=== PATIENT | male | born 1965 | race Two or more races ===

== ENCOUNTER → 2016-11-14 | Outpatient (CLI) | payer BC ==
[2016-11-14 11:43] LABS: Basophils # (auto) 0.3 uL; DEFINITIVE VIEW TRANSMISSION; Eosinophils # (auto) 0.1 uL; Eosinophils % (auto) 1.2 % (0.0-7.0); Hematocrit 50.7 % (41.0-53.0); Hemoglobin 16.8 g/dL (13.5-17.5); Lymphocytes # (auto) 2.4 uL; Mean Corpuscular Hemoglobin 31.1 pg (28.0-32.0); Mean Corpuscular Hgb Conc. 33.1 g/dL (32.0-36.0); Mean Corpuscular Volume 93.8 fL (80.0-100.0); Mean Platelet Volume 6.9 fL (7.4-10.4); Monocytes # (auto) 0.3 uL; Monocytes % (auto) 3.5 % (0.0-12.0); Neutrophils # (auto) 4.6 uL; Neutrophils % (auto) 60.6 % (37.0-80.0); Platelet Count (auto) 278 10^3/uL (140-450); Red Cell Distribution Width 12.2 % (11.6-16.0); White Blood Cell 7.7 10^3/uL (4.4-10.8)
[2016-11-14 11:54] LABS: Lymphocytes % (auto) 33.7 % (10.0-50.0)
[2016-11-14 12:12] LABS: Albumin 4.5 g/dL (3.4-5.0); BUN/Creatinine Ratio 13.4; Bilirubin, Total 0.8 mg/dL (0.2-1.0); Calcium 8.7 mg/dL (8.5-10.1); Potassium 3.7 mmol/L (3.5-5.1); Total Protein 8.1 g/dL (6.4-8.2)
== END | disposition home or self-care (01) ==
LOC: LAB 11:22
PROVIDERS: ATTEND Internal Medicine
DX: E05.00 Thyrotoxicosis with diffuse goiter without thyrotoxic crisis or storm (principal); E05.90 Thyrotoxicosis, unspecified without thyrotoxic crisis or storm; I10 Essential (primary) hypertension
CPT/HCPCS: 36415; 80053; 80061; 84153; 84443; 85025

== ENCOUNTER 2019-06-20 05:52 | Inpatient (IN) | payer BC ==
[~2019-06-20] VITALS: Ht 175.3 cm; Wt 87.4 kg
[2019-06-20] MEDS ORDERED: DILTIAZEM HCL 25 MG/5 ML VIAL IV ONE (06:30)
[2019-06-20] MEDS ORDERED: DILTIAZEM HCL 120MG ER CAP PO ONE (06:30)
[2019-06-20 06:51] LABS: INR 1.06 (0.9-1.15); Partial Thromboplastin Time 27.9 sec (23.64-32.05)
[2019-06-20 06:53] LABS: Calcium 8.6 mg/dL (8.5-10.1); Chloride 108 mmol/L (98-107); Potassium 3.7 mmol/L (3.5-5.1); Sodium 142 mmol/L (136-145)
[2019-06-20 07:00] LABS: Basophils # (auto) 0.1 uL; Basophils % (auto) 0.7 % (0.0-2.0); Eosinophils # (auto) 0.2 uL; Eosinophils % (auto) 1.9 % (0.0-7.0); Hemoglobin 17.9 g/dL (13.5-17.5); Lymphocytes % (auto) 33.7 % (10.0-50.0); Mean Corpuscular Hemoglobin 32.1 pg (28.0-32.0); Mean Corpuscular Hgb Conc. 35.1 g/dL (32.0-36.0); Mean Corpuscular Volume 91.4 fL (80.0-100.0); Monocytes # (auto) 0.6 uL; Monocytes % (auto) 6.5 % (0.0-12.0); Neutrophils # (auto) 5.1 uL; Neutrophils % (auto) 57.2 % (37.0-80.0); Nucleated Red Blood Cells % 0.5 %; Platelet Count (auto) 297 10^3/uL (140-450); Red Blood Cells 5.57 10^6/uL (4.5-5.90); Red Cell Distribution Width 12.8 % (11.8-14.3); White Blood Cell 8.9 10^3/uL (4.4-10.8)
[2019-06-20] MEDS ORDERED: ONDANSETRON HCL 4 MG/2 ML VIAL IV ONE (07:00)
[2019-06-20] MEDS ORDERED: SODIUM CHLORIDE 0.9% 1,000 ML IV ONE ×2 (07:00)
[2019-06-20 07:02] LABS: Alanine Aminotransferase 18 U/L (16-61); Albumin 4.3 g/dL (3.4-5.0); Alkaline Phosphatase 83 U/L (45-117); Anion Gap 7 (5-15); Aspartate Aminotransferase 14 U/L (15-37); BUN/Creatinine Ratio 9.8; Bilirubin, Total 0.9 mg/dL (0.2-1.0); Blood Urea Nitrogen 10 mg/dL (7-18); Carbon Dioxide 27 mmol/L (21-32); GFR African American 97 mL/min; GFR Non-African American 80 mL/min; Glucose 106 mg/dL (74-106); Total Protein 7.6 g/dL (6.4-8.2)
[2019-06-20] MEDS ORDERED: ASPirin 81 mg TAB PO ONE (07:15)
[2019-06-20] MEDS ORDERED: NITROGLYCERIN 0.4 MG SL TAB SL PRN (09:30)
[2019-06-20 09:59] LABS: Cholesterol 138 mg/dL (< 200); Triglycerides 132 mg/dL (< 150)
[2019-06-20] MEDS ORDERED: FAMOTIDINE 20 MG TAB PO SCH (10:00)
[2019-06-20 10:01] LABS: HDL Cholesterol 45 mg/dL (40-59); LDL Cholesterol 72 mg/dL (< 100)
[2019-06-20] MEDS: ASPirin 81 mg TAB PO SCH (10:05)
[2019-06-20] MEDS: PANTOPRAZOLE 40 MG TAB PO SCH (10:05)
--- NOTE | 2019-06-20 10:27 | NUR ---
Telemetry admit from ER [facility] admitted to Telemetry unit after SBAR received. Patient oriented to Tierra York, primary RN, unit, room, bed, and unit policies regarding patient care and visiting hours. Patient now on continuous telemetry monitoring, tele box # 79 and telemetry reading on arrival to unit is . Patient weighed by bedscale and encouraged to call if they need something. All questions and concerns addressed, patient verbalized understanding. Note:
[2019-06-20] MEDS: ONDANSETRON HCL 4 MG/2 ML VIAL IV PRN ×2 (10:37→16:13)
[2019-06-20] MEDS: HYDROcodone-ACET 5/325MG TAB PO PRN ×2 (11:35→16:11)
[2019-06-20 11:42] VITALS: BP 111/72
[2019-06-20 13:00] VITALS: BP 104/64
[2019-06-20] MEDS ORDERED: SOTALOL HCL 80 MG TAB PO ONE (14:30)
[2019-06-20 17:00] VITALS: BP 102/59
--- NOTE | 2019-06-20 19:20 | NUR ---
Opening Shift Note Received report from Brittany REES. Assumed care of patient, awake and alert. No S/S of distress/SOB or pain. Instructed on POC and to call for assist PRN, will continue to monitor for changes Q1hr and PRN.
[2019-06-20 22:00] VITALS: BP 98/55
[2019-06-20] MEDS: SOTALOL HCL 80 MG TAB PO SCH (22:00)
[2019-06-20] MEDS: APIXABAN 5 MG TAB PO SCH (22:11)
[2019-06-21 05:00] VITALS: BP 84/58
--- NOTE | 2019-06-21 05:04 | NUR ---
Patient's BP is 84/58 on L arm, 83/54 on R arm HR 63, asymptomatic, no sob or pain. Paged hospitalist, awaiting for call back.
[2019-06-21] MEDS ORDERED: ALBUMIN 5% 250 ML IV ONE (06:30)
--- NOTE | 2019-06-21 07:00 | NUR ---
Opening Shift Note Assumed care of patient, awake and alert. No S/S of distress/SOB or pain. Instructed on POC and to call for assist PRN, will continue to monitor for changes Q1hr and PRN.
[2019-06-21 08:35] VITALS: BP 99/62
[2019-06-21] MEDS ORDERED: DILTIAZEM HCL 120MG ER CAP PO SCH (10:00)
[2019-06-21] MEDS: PANTOPRAZOLE 40 MG TAB PO SCH (10:39)
[2019-06-21] MEDS: APIXABAN 5 MG TAB PO SCH ×2 (10:40→21:55)
[2019-06-21] MEDS: SOTALOL HCL 80 MG TAB PO SCH ×2 (10:40→21:55)
[2019-06-21] MEDS: ASPirin 81 mg TAB PO SCH (10:41)
[2019-06-21 12:49] VITALS: BP 109/62
[2019-06-21 16:53] VITALS: BP 124/80
[2019-06-21 20:02] LABS: Urine WBC None Seen /hpf (0 - 3)
[2019-06-21 20:21] LABS: Urine Bacteria NONE SEEN /hpf (None Seen); Urine Blood Negative /uL (Negative); Urine Specific Gravity 1.009 (1.001-1.035)
[2019-06-21] MEDS: ACETAMINOPHEN 500 MG TAB PO PRN (20:23)
[2019-06-21 22:00] VITALS: BP 119/68
[2019-06-22 05:00] VITALS: BP 127/73
--- NOTE | 2019-06-22 08:00 | NUR ---
Received pt resting in bed, call light with in reach, pt denies any pain or discomfort at this time, will continue to monitor pt.
[2019-06-22 09:00] VITALS: BP 122/88
[2019-06-22] MEDS: APIXABAN 5 MG TAB PO SCH ×2 (09:33→21:43)
[2019-06-22] MEDS: PANTOPRAZOLE 40 MG TAB PO SCH (09:33)
[2019-06-22] MEDS: SOTALOL HCL 80 MG TAB PO SCH ×2 (09:34→21:44)
--- NOTE | 2019-06-22 11:45 | NUR ---
Dr. Pelletier at bed side to see pt, doctor discussed the plan of care with pt, ok for pt to shower per doctor.
--- NOTE | 2019-06-22 11:47 | NUR ---
Nutrition Assessment Notes please see attached link for complete assessment Est. Needs BW 90 [id number] kcal (23-25 kcal/kgBW), 90-99 gms pro (1.0-1.1 gms/kgBW). Will continue to monitor pertinent labs and reassess nutrient need prn Addendum: 06/22/19 at [address] Amended: Links added.
[2019-06-22 13:00] VITALS: BP 113/75
[2019-06-22 17:00] VITALS: BP 111/74
--- NOTE | 2019-06-22 18:32 | NUR ---
Dr. Ho / cardiology at unit to see pt, received orders to obtain consent for cardioversion for 06/23/2019 at 1000, npo after midnight, and start pt on NS at 50 ml/hr.
--- NOTE | 2019-06-22 19:00 | NUR ---
Opening notes Assumed care, awake and oriented with no signs of distress and no c/o pain, respirations even and unlabored on room air, SPPO2 98%, still afib, 90's, PIV in the left AC patent and intact, to start NS @ 50ml/hr. Bed in lowest position with side rails up, bed alarm on, call light within reach. Encouraged to call if he needs something. Will continue care
[2019-06-22] MEDS: SODIUM CHLORIDE 0.9% 1,000 ML IV SCH (21:49)
[2019-06-22 22:00] VITALS: BP 119/76
--- NOTE | 2019-06-23 | NUR ---
Instructed on NPO post midnight
[2019-06-23 05:00] VITALS: BP 119/62
--- NOTE | 2019-06-23 06:08 | NUR ---
Ambulated to the restroom to take a shower, no distress noted.
--- NOTE | 2019-06-23 07:32 | NUR ---
Opening Note Assumed pt care form NOC nurse. Pt is a/ox4 with no s/s of distress or SOB. Pt is currently laying upright in bed with a mild complaint of dizziness; pt states that he just got done taking a shower and "that may be why". Instructed pt to stay in bed if dizziness persists; pt verbalized understanding. Discussed POC with pt and the scheduled cardioversion with Dr Ho today; pt verbalized understanding. Safety measures maintained with call light within reach, bed in lowest position and side rails up. Will continue to monitor for changes q1hr and prn.
[2019-06-23] MEDS: APIXABAN 5 MG TAB PO SCH ×2 (08:56→21:31)
[2019-06-23] MEDS: SOTALOL HCL 80 MG TAB PO SCH ×2 (08:56→22:00)
[2019-06-23] MEDS: PANTOPRAZOLE 40 MG TAB PO SCH (08:56)
[2019-06-23 09:00] VITALS: BP 103/70
--- NOTE | 2019-06-23 11:00 | NUR ---
Cardioversion Update Spoke with roofing laborer regarding estimated time for scheduled Cardioversion with Dr oH. At this time, staff in laborer cook house is unaware of when pt will be taken for procedure. They stated that they would alert me when they knew; requested that pt maintain NPO status. Will notify patient and keep NPO. Will continue to monitor.
--- NOTE | 2019-06-23 12:13 | NUR ---
Dr Pelletier at Bedside MD to see pt.
[2019-06-23] MEDS ORDERED: MIDAZOLAM HCL 1MG/1ML-2 ML VIAL ONE ×2 (12:52→13:13)
--- NOTE | 2019-06-23 12:52 | NUR ---
Pt Taken Down to Coal Unloader Pt taken via [place]. A/OX4 with no s/s of distress.
[2019-06-23] MEDS ORDERED: ENOXAPARIN SOD 30 MG/0.3 ML SYRINGE SC ONE (13:30)
[2019-06-23] MEDS ORDERED: MIDAZOLAM HCL 1MG/1ML-2 ML VIAL IV ONE (13:30)
[2019-06-23] MEDS ORDERED: ENOXAPARIN SOD 30 MG/0.3 ML SYRINGE IV ONE (14:00)
--- NOTE | 2019-06-23 14:17 | NUR ---
Pt Back on Unit from Boiler House Mechanic Pt back on unit from research laboratory manager. Pt is a/ox4 with no s/s of distress. Pt currently is on 2L NC PRN. Will continue to monitor for changes q1hr and prn.
[2019-06-23 14:20] VITALS: BP 131/67
[2019-06-23] MEDS: SODIUM CHLORIDE 0.9% 1,000 ML IV SCH (14:30)
[2019-06-23 17:00] VITALS: BP 110/69
[2019-06-23] MEDS: ACETAMINOPHEN 500 MG TAB PO PRN (18:27)
--- NOTE | 2019-06-23 19:10 | NUR ---
Opening Shift Note Received report from didier Diaz RN. Assumed care of patient, awake and alert. No S/S of distress/SOB or pain. Instructed on POC and to call for assist PRN, will continue to monitor for changes Q1hr and PRN. Bed placed in lowest position and call light within reach.
[2019-06-23] MEDS: HYDROcodone-ACET 5/325MG TAB PO PRN (21:30)
[2019-06-23] MEDS: MAGNESIUM OXIDE 400 MG TAB PO SCH (21:31)
[2019-06-23 22:00] VITALS: BP 96/56
[2019-06-24] MEDS: HYDROcodone-ACET 5/325MG TAB PO PRN (04:55)
[2019-06-24 05:00] VITALS: BP 94/66
--- NOTE | 2019-06-24 05:00 | NUR ---
GIVEN NORCO FOR HEADACHE. PATIENT IS ALERT AND ORIENTED, NO DISTRESS NOTED. VITALS ARE THE FF: TEMP 98.0, PULSE 61, RESP 16, OXYGEN SAT ON RA IS 98% AND BLOOD PRESSURE IS 94/66
--- NOTE | 2019-06-24 07:44 | NUR ---
Opening Note Assumed pt care from [facility] nurse. Pt is a/ox4 with no s/s of distress or SOB. Pt is currently laying in bed with no complaints at this time. Pt states that his ASCENCIO has since resolved; will continue to monitor. Discussed POC with pt and possible d/c today; pt verbalized understanding. Safety measures maintained with call light within reach, bed in lowest position and side rails up. Will continue to monitor for changes q1hr and prn.
[2019-06-24 09:00] VITALS: BP 98/50
[2019-06-24] MEDS: PANTOPRAZOLE 40 MG TAB PO SCH (09:30)
[2019-06-24] MEDS: MAGNESIUM OXIDE 400 MG TAB PO SCH (09:31)
[2019-06-24] MEDS: SOTALOL HCL 80 MG TAB PO SCH (09:31)
[2019-06-24] MEDS: APIXABAN 5 MG TAB PO SCH (09:31)
--- NOTE | 2019-06-24 11:21 | NUR ---
DR MARTINEZ AT BEDSIDE PLANS TO D/C PT HOME.
[2019-06-24 12:01] VITALS: BP 98/50
--- NOTE | 2019-06-24 12:21 | NUR ---
IV D/C'ED IV TO PT L FA REMOVED. CATHETER WAS REMOVED FULLY INTACT. SITE IS ASYMPTOMATIC. PRESSURE WAS APPLIED TO SITE FOR 3 MINUTES WITH GAUZE AND THEN WRAPPED IN [place]. PT TOLERATED REMOVAL WELL.
--- NOTE | 2019-06-24 12:23 | NUR ---
TELE BOX REMOVED AND SENT BACK TO ICU
--- NOTE | 2019-06-24 12:25 | NUR ---
PT D/C'ED OFF UNIT PT AMBULATED OFF UNIT WITHOUT DIFFICULTY, PT HAS ALL BELONGINGS, EDUCATION MATERIAL, FOLLOW UP APPOINTMENT INFORMATION, AND ALL QUESTIONS WERE ANSWERED. PT'S IV AND TELE BOX WERE REMOVED PRIOR TO D/C. PT IS A/OX4 UPON D/C.
== END 2019-06-24 12:24 | disposition home or self-care (01) | DRG 309 ==
LOC: ER 05:52 → EEVIPCON 05:53 → TELE 05:53 → TELE-WESTW 10:16
PROVIDERS: ADMIT Nurse Practitioner Acute Care; ATTEND Internal Medicine
PROC: 5A2204Z Restoration of Cardiac Rhythm, Single (ICD-10-PCS; principal; 2019-06-23)
DX: I48.0 Paroxysmal atrial fibrillation (principal); D68.69 Other thrombophilia; Z79.01 Long term (current) use of anticoagulants; D75.1 Secondary polycythemia; Z88.5 Allergy status to narcotic agent; Z90.49 Acquired absence of other specified parts of digestive tract
CPT/HCPCS: 36415; 71045; 71046; 80053; 80061; 81001; 83735; 84154; 84443; 84484; 85025; 85610; 85730; 86141; 93005; 93306; 96361; 96365; 96375; 99291; G0378; J2250; J2405

== ENCOUNTER → 2019-07-12 | Outpatient (CLI) | payer BC ==
[~2019-07-12] MED LIST: APIX5TAB4 PO; MAGN400T40 PO; SOTA80TA PO
[2019-07-12 10:25] VITALS: BP 125/80
[2019-07-12 10:45] VITALS: BP 113/72
--- NOTE | 2019-07-12 10:45 | NUR ---
Pre-Op Discharge Summary: See e-MAR for any medications given for this visit. Pre-op orders received and carried out per MD of EKG, LABS and chest xrays. Patient given a copy of EKG with instructions to go to [facility] out patient for further follow up care.
[2019-07-12 11:59] LABS: Basophils # (auto) 0 uL; Basophils % (auto) 0.5 % (0.0-2.0); Eosinophils # (auto) 0.2 uL; Hematocrit 47.1 % (41.0-53.0); Hemoglobin 16.3 g/dL (13.5-17.5); Lymphocytes # (auto) 2.5 uL; Mean Corpuscular Hemoglobin 32.1 pg (28.0-32.0); Mean Corpuscular Hgb Conc. 34.6 g/dL (32.0-36.0); Mean Corpuscular Volume 92.9 fL (80.0-100.0); Monocytes # (auto) 0.5 uL; Neutrophils # (auto) 4.4 uL; Neutrophils % (auto) 57.5 % (37.0-80.0); Nucleated Red Blood Cells % 0.8 %; Platelet Count (auto) 275 10^3/uL (140-450); Red Blood Cells 5.07 10^6/uL (4.5-5.90); Red Cell Distribution Width 13.3 % (11.8-14.3); White Blood Cell 7.7 10^3/uL (4.4-10.8)
[2019-07-12 12:13] LABS: Calcium 8.9 mg/dL (8.5-10.1); INR 1.08 (0.9-1.15); Partial Thromboplastin Time 31.3 sec (23.64-32.05); Potassium 4.2 mmol/L (3.5-5.1)
[2019-07-12 12:15] LABS: BUN/Creatinine Ratio 12.4
== END | disposition home or self-care (01) ==
LOC: Rad HDHVI 09:56
PROVIDERS: ATTEND Internal Medicine Cardiovascular Disease
DX: Z01.812 Encounter for preprocedural laboratory examination (principal); J84.10 Pulmonary fibrosis, unspecified; R91.1 Solitary pulmonary nodule
CPT/HCPCS: 36415; 71046; 80048; 85025; 85610; 85730; 93005; G0463

== ENCOUNTER 2019-07-14 09:22 | Inpatient (IN) | payer BC ==
[~2019-07-14] VITALS: Ht 175.3 cm; Wt 83.9 kg
[2019-07-14] MEDS ORDERED: VANCOMYCIN 1GM/250ML 250 ML IV ONE (12:28)
[2019-07-14] MEDS ORDERED: LIDOCAINE 2%HCL (LOCAL ANESTH.) INJ 20ML MDV ONE (12:28)
[2019-07-14] MEDS ORDERED: VANCOMYCIN HCL 1000 MG VL ONE (12:28)
[2019-07-14] MEDS ORDERED: fentaNYL CITRATE 100 MCG/2 ML VL ONE (12:29)
[2019-07-14] MEDS ORDERED: ceFAZolin 1GM/50ML 50 ML IV ONE (12:29)
[2019-07-14] MEDS ORDERED: MIDAZOLAM HCL 1MG/1ML-2 ML VIAL ONE (12:29)
[2019-07-14] MEDS ORDERED: methylPREDNISolone SOD SUCC 125 MG/2 ML VL IV ONE (14:00)
[2019-07-14] MEDS ORDERED: methylPREDNISolone SOD SUCC 125 MG/2 ML VL ONE (14:00)
[2019-07-14] MEDS ORDERED: ACETAMINOPHEN 325 MG TAB PO PRN (14:30)
[2019-07-14] MEDS ORDERED: ceFAZolin 1GM/50ML 50 ML IV SCH ×2 (14:30→20:00)
[2019-07-14] MEDS ORDERED: HYDROcodone-ACET 5/325MG TAB PO PRN (14:30)
[2019-07-14] MEDS ORDERED: NITROGLYCERIN 0.4 MG SL TAB SL PRN (14:30)
[2019-07-14 16:00] VITALS: BP 121/74
--- NOTE | 2019-07-14 17:00 | NUR ---
Telemetry admit from Senior Principal Software Engineer MIKEMAC Pabon admitted to Telemetry unit after verbal report received. Patient oriented to Olamide Steve, primary RN, unit, room, bed, and unit policies regarding patient care and visiting hours. Patient is awake, alert and oriented X4. No signs or symptoms of distress, shortness of breath, complains of left upper chest pain to s/p pacemaker site, medicated with prescribed pain medication. Patient now on continuous telemetry monitoring, tele box #34 and telemetry reading on arrival to unit is sinus rhythm @ 60 bpm . IV to right wrist, 20 gauge, patent and saline locked. Left upper chest wall dressing in place, clean, dry and intact, left arm in sling and ice pack applied. Patient placed on bedside oxygen, weighed by bedscale and encouraged to call if they need something. All questions and concerns addressed, patient verbalized understanding. Bed locked, in lowest position, call light within reach, will continue to monitor Q 1 hour and PRN.
--- NOTE | 2019-07-14 20:00 | NUR ---
open note assumed care of pt. upon entering room pt awake, alert and oriented x4. pt on room air no distress noted or expressed. pt denies any pain at this time. left arm is in sling and dressing to left upper chest is clean dry and intact. pt aware of mobility restriction with left arm at this time. pt updated on plan of care, no questions at this time. pt bed locked, low and 2x rails up. call light in reach, this nurse to round q1hr and prn. call light in reach.
[2019-07-14 21:32] VITALS: BP 113/68
[2019-07-14] MEDS: SOTALOL HCL 80 MG TAB PO SCH (21:49)
[2019-07-14] MEDS: MAGNESIUM OXIDE 400 MG TAB PO SCH (21:50)
[2019-07-15 04:41] VITALS: BP 104/56
--- NOTE | 2019-07-15 07:35 | NUR ---
Opening Shift Note Assumed care of patient, awake and alert. No S/S of distress/SOB or pain. Noted post op dressing on left chest is clean dry and intact. Instructed on POC and to call for assist PRN, will continue to monitor for changes Q1hr and PRN.
[2019-07-15 08:44] VITALS: BP 100/56
[2019-07-15] MEDS: MAGNESIUM OXIDE 400 MG TAB PO SCH (09:59)
[2019-07-15] MEDS: SOTALOL HCL 80 MG TAB PO SCH (10:00)
[2019-07-15 13:44] VITALS: BP 101/50
--- NOTE | 2019-07-15 14:45 | NUR ---
DR. ZAMORA ORDERED TO DISCHARGE PATIENT HOME.
[2019-07-15 15:08] VITALS: BP 105/61
--- NOTE | 2019-07-15 15:23 | NUR ---
pt seen by Dr. Ho per Dr. Ho pt can go home, to remove the sling, and resume blood thinners on Thursday.
--- NOTE | 2019-07-15 16:15 | NUR ---
Discharge instructions given as ordered. Encourage to follow up with DR. ZAMORA ON 07/20/19 AT 9:20AM AND DR CORNELL ON 08/02/19 AT 2:15PM. All questions and concerns addressed. Patient verbalized understanding. Medication reconciliation form completed and copy given to patient. IV removed with catheter intact, pressure dressing applied. Telemetry unit returned to ICU. Patient taken to vehicle via wheelchair with all personal belongings, accompanied by staff and family member. No distress noted at time of departure.
== END 2019-07-15 16:15 | disposition home or self-care (01) | DRG 243 ==
LOC: CATH 09:22 → TELE-CENTR 15:35
PROVIDERS: ADMIT Internal Medicine Cardiovascular Disease; ATTEND Internal Medicine Cardiovascular Disease
PROC: 0JH606Z Insertion of Pacemaker, Dual Chamber into Chest Subcutaneous Tissue and Fascia, Open Approach (ICD-10-PCS; principal; 2019-07-14)
PROC: 02H63JZ Insertion of Pacemaker Lead into Right Atrium, Percutaneous Approach (ICD-10-PCS; 2019-07-14)
PROC: 02HK3JZ Insertion of Pacemaker Lead into Right Ventricle, Percutaneous Approach (ICD-10-PCS; 2019-07-14)
DX: I49.5 Sick sinus syndrome (principal); D68.59 Other primary thrombophilia; I48.0 Paroxysmal atrial fibrillation; Z88.5 Allergy status to narcotic agent; Z88.1 Allergy status to other antibiotic agents; Z79.01 Long term (current) use of anticoagulants
CPT/HCPCS: 71045; 93005; 99152; 99153; C1785; G0378; J0690; J2250

== ENCOUNTER 2019-07-26 19:08 | Emergency (ER) | payer BC ==
[~2019-07-26] VITALS: Ht 175.3 cm; Wt 81.6 kg
[2019-07-26 20:50] LABS: Basophils # (auto) 0.1 uL; Basophils % (auto) 0.8 % (0.0-2.0); Eosinophils # (auto) 0.3 uL; Eosinophils % (auto) 3.4 % (0.0-7.0); Hematocrit 47.7 % (41.0-53.0); Hemoglobin 16.7 g/dL (13.5-17.5); Lymphocytes # (auto) 3.2 uL; Lymphocytes % (auto) 32.5 % (10.0-50.0); Mean Corpuscular Hemoglobin 32.4 pg (28.0-32.0); Mean Corpuscular Volume 92.5 fL (80.0-100.0); Monocytes # (auto) 0.6 uL; Monocytes % (auto) 6.3 % (0.0-12.0); Neutrophils # (auto) 5.6 uL; Nucleated Red Blood Cells % 0.1 %; Platelet Count (auto) 277 10^3/uL (140-450); Red Blood Cells 5.15 10^6/uL (4.5-5.90); White Blood Cell 9.9 10^3/uL (4.4-10.8)
[2019-07-26] MEDS: METOPROLOL TARTRATE 1MG/1ML-5ML VIAL IV ONE ×2 (20:55→22:27)
[2019-07-26 21:11] LABS: Albumin 3.9 g/dL (3.4-5.0); Anion Gap 6 (5-15); BUN/Creatinine Ratio 10.2; Blood Urea Nitrogen 9 mg/dL (7-18); Calcium 8.6 mg/dL (8.5-10.1); Carbon Dioxide 27 mmol/L (21-32); Chloride 108 mmol/L (98-107); GFR African American 115 mL/min; GFR Non-African American 95 mL/min; Glucose 86 mg/dL (74-106); Magnesium 2.5 mg/dL (1.6-2.6); Potassium 4.3 mmol/L (3.5-5.1); Sodium 141 mmol/L (136-145)
[2019-07-26 21:16] LABS: Alanine Aminotransferase 16 U/L (16-61); Alkaline Phosphatase 84 U/L (45-117); Aspartate Aminotransferase 13 U/L (15-37); Bilirubin, Total 0.4 mg/dL (0.2-1.0); Total Protein 7.5 g/dL (6.4-8.2)
[2019-07-26 21:26] LABS: INR 1.01 (0.9-1.15)
[2019-07-26 23:45] VITALS: BP 109/71
== END 2019-07-26 23:45 | disposition home or self-care (01) ==
LOC: EEVIPCON 19:10 → ER 19:10
DX: I48.20 Chronic atrial fibrillation, unspecified (principal); Z90.49 Acquired absence of other specified parts of digestive tract; Z88.6 Allergy status to analgesic agent; Z88.1 Allergy status to other antibiotic agents; Z95.0 Presence of cardiac pacemaker
CPT/HCPCS: 36415; 71045; 80053; 83735; 83880; 84443; 84484; 85025; 85610; 85730; 93005; 96374; 96375; 96376

== ENCOUNTER 2019-11-03 06:15 | Day surgery (SDC) | payer BC ==
[~2019-11-03] VITALS: Ht 175.3 cm; Wt 89.4 kg
[2019-11-03 08:15] LABS: Basophils # (auto) 0 10 ^3/uL (0-0.2); Basophils % (auto) 0.6 % (0.0-2.0); Eosinophils # (auto) 0.1 10 ^3/uL (0-0.8); Eosinophils % (auto) 1.7 % (0.0-7.0); Hematocrit 46.7 % (41.0-53.0); Hemoglobin 16.1 g/dL (13.5-17.5); Lymphocytes # (auto) 2.3 10 ^3/uL (0.4-5.4); Mean Corpuscular Hemoglobin 32.3 pg (28.0-32.0); Mean Corpuscular Hgb Conc. 34.5 g/dL (32.0-36.0); Mean Corpuscular Volume 93.7 fL (80.0-100.0); Monocytes # (auto) 0.5 10 ^3/uL (0-1.3); Monocytes % (auto) 6.8 % (0.0-12.0); Neutrophils # (auto) 3.9 10 ^3/uL (1.6-8.6); Neutrophils % (auto) 56.9 % (37.0-80.0); Nucleated Red Blood Cells % 0.2 %; Platelet Count (auto) 231 10^3/uL (140-450); Red Blood Cells 4.99 10^6/uL (4.5-5.90); Red Cell Distribution Width 13.2 % (11.8-14.3); White Blood Cell 6.8 10^3/uL (4.4-10.8)
[2019-11-03 08:30] LABS: INR 1.07 (0.9-1.15); Partial Thromboplastin Time 29.1 sec (23.64-32.05)
[2019-11-03 08:31] LABS: Calcium 8.4 mg/dL (8.5-10.1); Potassium 4.1 mmol/L (3.5-5.1)
[2019-11-03] MEDS ORDERED: MIDAZOLAM HCL 1MG/1ML-2 ML VIAL IV ONE (09:30)
== END 2019-11-03 11:27 | disposition home or self-care (01) ==
LOC: CATH 06:15
PROVIDERS: ATTEND Internal Medicine Cardiovascular Disease
DX: I48.91 Unspecified atrial fibrillation (principal); Z88.5 Allergy status to narcotic agent; Z98.890 Other specified postprocedural states; Z98.52 Vasectomy status
CPT/HCPCS: 36415; 80048; 85025; 85610; 85730; 92960; 93005; J2250; J7040; 99152

== ENCOUNTER → 2019-11-25 | Outpatient (CLI) | payer BC | END | disposition home or self-care (01) | LOC: XYW 07:34 | PROVIDERS: ATTEND Specialist | DX: I11.9 Hypertensive heart disease without heart failure (principal); R07.9 Chest pain, unspecified | CPT/HCPCS: 93306 ==

== ENCOUNTER → 2019-12-07 | Outpatient (CLI) | payer BC ==
[~2019-12-07] VITALS: Ht 175.3 cm; Wt 88.9 kg
[~2019-12-07] MED LIST changes: +ACET-1304 PO; +ADENOSINE 75 MG in GIVE UN-DILUTED 0 ML IV STA
== END | disposition home or self-care (01) ==
LOC: XY 09:12
PROVIDERS: ATTEND Specialist
DX: R07.9 Chest pain, unspecified (principal); I10 Essential (primary) hypertension; Z95.0 Presence of cardiac pacemaker
CPT/HCPCS: 78452; 93017; A9500; J0153

== ENCOUNTER 2019-12-14 14:07 | Inpatient (IN) | payer BC ==
[~2019-12-14] VITALS: Ht 175.3 cm; Wt 94.0 kg
[~2019-12-14 14:07] MED LIST changes: -ACET-1304 PO; -ADENOSINE 75 MG in GIVE UN-DILUTED 0 ML IV STA
[2019-12-14 15:14] LABS: Basophils # (auto) 0 10 ^3/uL (0-0.2); Basophils % (auto) 0.5 % (0.0-2.0); Eosinophils # (auto) 0.1 10 ^3/uL (0-0.8); Eosinophils % (auto) 1.6 % (0.0-7.0); Hematocrit 47.6 % (41.0-53.0); Hemoglobin 16.9 g/dL (13.5-17.5); Lymphocytes # (auto) 2.5 10 ^3/uL (0.4-5.4); Lymphocytes % (auto) 32.8 % (10.0-50.0); Mean Corpuscular Hemoglobin 33.1 pg (28.0-32.0); Mean Corpuscular Hgb Conc. 35.4 g/dL (32.0-36.0); Mean Corpuscular Volume 93.4 fL (80.0-100.0); Monocytes # (auto) 0.6 10 ^3/uL (0-1.3); Monocytes % (auto) 8.2 % (0.0-12.0); Neutrophils # (auto) 4.4 10 ^3/uL (1.6-8.6); Neutrophils % (auto) 56.9 % (37.0-80.0); Nucleated Red Blood Cells % 0.1 %; Platelet Count (auto) 304 10^3/uL (140-450); Red Cell Distribution Width 12.8 % (11.8-14.3); White Blood Cell 7.7 10^3/uL (4.4-10.8)
[2019-12-14 15:28] LABS: Alanine Aminotransferase 18 U/L (16-61); Anion Gap 6 (5-15); Aspartate Aminotransferase 15 U/L (15-37); BUN/Creatinine Ratio 12.4; Blood Urea Nitrogen 15 mg/dL (7-18); Calcium 8.4 mg/dL (8.5-10.1); Carbon Dioxide 26 mmol/L (21-32); Chloride 108 mmol/L (98-107); GFR African American 80 mL/min; GFR Non-African American 66 mL/min; Glucose 88 mg/dL (74-106); Magnesium 2.4 mg/dL (1.6-2.6); Potassium 3.9 mmol/L (3.5-5.1); Sodium 140 mmol/L (136-145)
[2019-12-14 15:33] LABS: Alkaline Phosphatase 77 U/L (45-117); Total Protein 7.3 g/dL (6.4-8.2)
[2019-12-14] MEDS ORDERED: NITROGLYCERIN 0.4 MG SL TAB SL PRN (18:45)
[2019-12-14] MEDS ORDERED: SOTALOL HCL 80 MG TAB PO ONE (18:47)
[2019-12-14] MEDS: SOTALOL HCL 80 MG TAB PO SCH ×2 (18:54→21:06)
[2019-12-14] MEDS ORDERED: HYDROmorphone HCL 2 MG/ML VL IV PRN (20:00)
[2019-12-14 20:21] VITALS: BP 118/75
[2019-12-14] MEDS ORDERED: HYDROcodone-ACET 5/325MG TAB PO PRN (21:00)
[2019-12-14] MEDS ORDERED: ONDANSETRON HCL 4 MG/2 ML VIAL IV PRN (21:00)
[2019-12-14] MEDS: APIXABAN 5 MG TAB PO SCH (21:06)
[2019-12-14] MEDS: MAGNESIUM OXIDE 400 MG TAB PO SCH (21:07)
[2019-12-14] MEDS ORDERED: MAGN400T40 PO (22:22)
[2019-12-14] MEDS ORDERED: SOTA80TA PO (22:22)
[2019-12-15] MEDS ORDERED: HYDROmorphone HCL 2 MG/ML VL IV PRN
[2019-12-15 05:30] VITALS: BP 98/65
[2019-12-15 07:35] LABS: Basophils # (auto) 0 10 ^3/uL (0-0.2); Basophils % (auto) 0.5 % (0.0-2.0); Eosinophils # (auto) 0.1 10 ^3/uL (0-0.8); Eosinophils % (auto) 1.2 % (0.0-7.0); Hematocrit 47.3 % (41.0-53.0); Hemoglobin 16.6 g/dL (13.5-17.5); Lymphocytes # (auto) 2.3 10 ^3/uL (0.4-5.4); Lymphocytes % (auto) 31.4 % (10.0-50.0); Mean Corpuscular Hemoglobin 32.9 pg (28.0-32.0); Mean Corpuscular Hgb Conc. 35.1 g/dL (32.0-36.0); Mean Corpuscular Volume 93.8 fL (80.0-100.0); Monocytes # (auto) 0.5 10 ^3/uL (0-1.3); Monocytes % (auto) 6.6 % (0.0-12.0); Neutrophils # (auto) 4.3 10 ^3/uL (1.6-8.6); Neutrophils % (auto) 60.3 % (37.0-80.0); Nucleated Red Blood Cells % 0.2 %; Platelet Count (auto) 255 10^3/uL (140-450); Red Blood Cells 5.04 10^6/uL (4.5-5.90); Red Cell Distribution Width 12.9 % (11.8-14.3); White Blood Cell 7.2 10^3/uL (4.4-10.8)
[2019-12-15 07:51] LABS: Albumin 3.8 g/dL (3.4-5.0); Anion Gap 5 (5-15); Blood Urea Nitrogen 16 mg/dL (7-18); Calcium 8.3 mg/dL (8.5-10.1); Carbon Dioxide 29 mmol/L (21-32); Chloride 106 mmol/L (98-107); Glucose 105 mg/dL (74-106); Sodium 140 mmol/L (136-145)
[2019-12-15 07:55] LABS: Alanine Aminotransferase 17 U/L (16-61); Alkaline Phosphatase 70 U/L (45-117); Aspartate Aminotransferase 8 U/L (15-37); BUN/Creatinine Ratio 15.5; Bilirubin, Total 0.9 mg/dL (0.2-1.0); GFR African American 96 mL/min; GFR Non-African American 79 mL/min
[2019-12-15 08:00] VITALS: BP 101/66
[2019-12-15] MEDS: MAGNESIUM OXIDE 400 MG TAB PO SCH ×2 (10:01→22:49)
[2019-12-15] MEDS: METOPROLOL SUCCINATE XL 50 MG TAB PO SCH ×2 (10:01→22:48)
[2019-12-15] MEDS: APIXABAN 5 MG TAB PO SCH ×2 (10:01→22:48)
[2019-12-15] MEDS: FLECAINIDE ACETATE 50 MG TAB PO SCH ×2 (10:28→22:47)
[2019-12-15] MEDS ORDERED: ACET-1304 PO (11:09)
[2019-12-15 12:00] VITALS: BP 99/63
[2019-12-15 17:00] VITALS: BP 106/58
[2019-12-15 20:00] VITALS: BP 107/68
[2019-12-15 22:07] VITALS: BP 108/72
[2019-12-16 05:19] VITALS: BP 112/70
[2019-12-16 08:51] VITALS: BP 112/72
[2019-12-16] MEDS: APIXABAN 5 MG TAB PO SCH (09:36)
[2019-12-16] MEDS: MAGNESIUM OXIDE 400 MG TAB PO SCH (09:36)
[2019-12-16] MEDS: METOPROLOL SUCCINATE XL 50 MG TAB PO SCH (09:37)
[2019-12-16] MEDS: FLECAINIDE ACETATE 50 MG TAB PO SCH (09:37)
== END 2019-12-16 12:28 | disposition home or self-care (01) | DRG 310 ==
LOC: EEVIPCON 14:07 → ER 14:07 → TELE 14:08 → TELE-EAST 20:25
PROVIDERS: ADMIT Specialist; ATTEND Specialist
DX: I48.0 Paroxysmal atrial fibrillation (principal); Z79.01 Long term (current) use of anticoagulants; Z80.42 Family history of malignant neoplasm of prostate; Z83.3 Family history of diabetes mellitus; Z88.5 Allergy status to narcotic agent; Z88.8 Allergy status to other drugs, medicaments and biological substances; Z79.899 Other long term (current) drug therapy; Z90.49 Acquired absence of other specified parts of digestive tract; Z95.0 Presence of cardiac pacemaker
CPT/HCPCS: 36415; 71045; 80053; 83735; 83880; 84484; 85025; 87081; 93005; 93306; G0378; J2405

== ENCOUNTER → 2020-01-09 | Outpatient (CLI) | payer BC ==
[~2020-01-09] MED LIST changes: +ACET-1304 PO; +FLEC100T21 PO; +METO25TA5 PO
[2020-01-09 10:16] LABS: Potassium 4.4 mmol/L (3.5-5.1)
[2020-01-09 10:25] LABS: BUN/Creatinine Ratio 12.1; Bilirubin, Direct 0.1 mg/dL (0-0.2); Bilirubin, Total 0.6 mg/dL (0.2-1.0); Total Protein 7.4 g/dL (6.4-8.2)
[2020-01-09 10:33] LABS: Basophils # (auto) 0 10 ^3/uL (0-0.2); Basophils % (auto) 0.3 % (0.0-2.0); Eosinophils # (auto) 0.1 10 ^3/uL (0-0.8); Eosinophils % (auto) 2.1 % (0.0-7.0); Hematocrit 45.9 % (41.0-53.0); Hemoglobin 16.1 g/dL (13.5-17.5); Lymphocytes # (auto) 2.1 10 ^3/uL (0.4-5.4); Lymphocytes % (auto) 33.1 % (10.0-50.0); Mean Corpuscular Hemoglobin 33.1 pg (28.0-32.0); Mean Corpuscular Hgb Conc. 35.1 g/dL (32.0-36.0); Mean Corpuscular Volume 94.2 fL (80.0-100.0); Monocytes # (auto) 0.4 10 ^3/uL (0-1.3); Monocytes % (auto) 6.4 % (0.0-12.0); Neutrophils # (auto) 3.6 10 ^3/uL (1.6-8.6); Neutrophils % (auto) 58.1 % (37.0-80.0); Nucleated Red Blood Cells % 0.1 %; Platelet Count (auto) 255 10^3/uL (140-450); Red Blood Cells 4.88 10^6/uL (4.5-5.90); Red Cell Distribution Width 12.9 % (11.8-14.3); White Blood Cell 6.2 10^3/uL (4.4-10.8)
== END | disposition home or self-care (01) ==
LOC: LAB 07:08
PROVIDERS: ATTEND Specialist
DX: E11.9 Type 2 diabetes mellitus without complications (principal); I10 Essential (primary) hypertension; R94.5 Abnormal results of liver function studies; D64.9 Anemia, unspecified; E78.5 Hyperlipidemia, unspecified; E03.9 Hypothyroidism, unspecified
CPT/HCPCS: 36415; 80048; 80061; 80076; 83036; 84443; 85025

== ENCOUNTER 2020-02-13 15:14 | Inpatient (IN) | payer BC ==
[~2020-02-13] VITALS: Ht 175.3 cm; Wt 95.3 kg
[~2020-02-13 15:14] MED LIST changes: -FLEC100T21 PO; -METO25TA5 PO
[2020-02-13] MEDS ORDERED: SODIUM CHLORIDE 0.9% 1,000 ML IV SCH (16:22)
[2020-02-13] MEDS ORDERED: NITROGLYCERIN 0.4 MG SL TAB SL PRN ×2 (16:30)
[2020-02-13] MEDS ORDERED: ALUM & MAG HYDROX-SIMETH LIQ(MAALOX) 30 ML PO PRN (16:30)
[2020-02-13] MEDS ORDERED: ALUM & MAG HYDROX-SIMETH LIQ(MAALOX) 30 ML PO ONE (16:30)
[2020-02-13] MEDS ORDERED: LORazepam 0.5 MG TAB PO PRN (16:30)
[2020-02-13] MEDS ORDERED: ONDANSETRON HCL 4 MG/2 ML VIAL IV PRN (16:30)
[2020-02-13] MEDS ORDERED: HYDROcodone-ACET 5/325MG TAB PO PRN (16:30)
[2020-02-13] MEDS ORDERED: DOCUSATE SOD 100 MG CAP PO PRN (16:30)
[2020-02-13] MEDS ORDERED: METOPROLOL TARTRATE 1MG/1ML-5ML VIAL IV PRN (16:30)
[2020-02-13] MEDS ORDERED: MORPHINE SULF INJ 2 MG/ML SYRINGE 1ML IV PRN ×5 (16:30→16:45)
[2020-02-13 17:05] LABS: Basophils # (auto) 0 10 ^3/uL (0-0.2); Basophils % (auto) 0.6 % (0.0-2.0); Eosinophils # (auto) 0.1 10 ^3/uL (0-0.8); Eosinophils % (auto) 1.7 % (0.0-7.0); Hematocrit 46.1 % (41.0-53.0); Hemoglobin 15.5 g/dL (13.5-17.5); Lymphocytes # (auto) 2.2 10 ^3/uL (0.4-5.4); Lymphocytes % (auto) 31.7 % (10.0-50.0); Mean Corpuscular Hemoglobin 31.7 pg (28.0-32.0); Mean Corpuscular Hgb Conc. 33.6 g/dL (32.0-36.0); Mean Corpuscular Volume 94.4 fL (80.0-100.0); Monocytes # (auto) 0.6 10 ^3/uL (0-1.3); Monocytes % (auto) 8.3 % (0.0-12.0); Neutrophils # (auto) 3.9 10 ^3/uL (1.6-8.6); Neutrophils % (auto) 57.7 % (37.0-80.0); Nucleated Red Blood Cells % 0.1 %; Platelet Count (auto) 250 10^3/uL (140-450); Red Blood Cells 4.88 10^6/uL (4.5-5.90); Red Cell Distribution Width 13.3 % (11.8-14.3); White Blood Cell 6.8 10^3/uL (4.4-10.8)
[2020-02-13 17:12] LABS: Albumin 3.9 g/dL (3.4-5.0); Anion Gap 6 (5-15); Blood Urea Nitrogen 18 mg/dL (7-18); Calcium 8.2 mg/dL (8.5-10.1); Carbon Dioxide 26 mmol/L (21-32); Chloride 109 mmol/L (98-107); Glucose 99 mg/dL (74-106); Magnesium 2.3 mg/dL (1.6-2.6); Potassium 3.6 mmol/L (3.5-5.1); Sodium 141 mmol/L (136-145)
[2020-02-13 17:14] LABS: Alanine Aminotransferase 18 U/L (16-61); Aspartate Aminotransferase 12 U/L (15-37); BUN/Creatinine Ratio 19.4; GFR African American 108 mL/min; GFR Non-African American 89 mL/min
[2020-02-13 17:16] LABS: Alkaline Phosphatase 81 U/L (45-117); Bilirubin, Total 0.8 mg/dL (0.2-1.0); Total Protein 7.3 g/dL (6.4-8.2)
--- NOTE | 2020-02-13 20:40 | NUR ---
Telemetry admit from ER [facility] admitted to Telemetry unit after SBAR received. Patient oriented to Funmi Schwab, primary RN, unit, room, bed, and unit policies regarding patient care and visiting hours. Patient now on continuous telemetry monitoring, tele box # 31 and telemetry reading on arrival to unit is sinus rhythm. Patient weighed by bedscale and encouraged to call if they need something. All questions and concerns addressed, patient verbalized understanding.
[2020-02-13 20:45] VITALS: BP 138/90
[2020-02-13] MEDS ORDERED: ATORVASTATIN 20 MG TAB PO SCH (22:00)
[2020-02-13] MEDS ORDERED: FLECAINIDE ACETATE 50 MG TAB PO SCH (22:00)
[2020-02-13] MEDS: APIXABAN 5 MG TAB PO SCH (22:07)
[2020-02-13] MEDS: FLECAINIDE ACETATE 50 MG TAB PO SCH (22:07)
[2020-02-13 23:12] VITALS: BP 138/90
[2020-02-14] MEDS ORDERED: ALUM & MAG HYDROX-SIMETH LIQ(MAALOX) 30 ML PO PRN
[2020-02-14] MEDS ORDERED: METO25TA5 PO (04:00)
[2020-02-14] MEDS ORDERED: FLEC100T21 PO (04:00)
[2020-02-14 05:29] VITALS: BP 123/74
--- NOTE | 2020-02-14 07:20 | NUR ---
Opening shift note Received report from Lisa REES. Assumed care of patient AOx4. No s/s of distress noted at this time. Patient denies pain. Updated on POC and to call for assistance as needed. Bed in low position, locked, and call light within reach. Will continue care.
[2020-02-14 08:58] VITALS: BP 122/67
[2020-02-14] MEDS ORDERED: DOCUSATE SOD 100 MG CAP PO SCH (10:00)
[2020-02-14] MEDS: APIXABAN 5 MG TAB PO SCH (10:38)
[2020-02-14] MEDS: FLECAINIDE ACETATE 50 MG TAB PO SCH (10:39)
[2020-02-14 12:30] VITALS: BP 116/66
--- NOTE | 2020-02-14 13:50 | NUR ---
Discharge instructions given as ordered. Encourage to follow up with PMD as instructed. All questions and concerns addressed. Patient verbalized understanding. IV removed with catheter intact, pressure dressing applied. Telemetry unit returned to ICU. Patient ambulated to vehicle with all personal belongings, accompanied by self. No distress noted at time of departure.
== END 2020-02-14 13:50 | disposition home or self-care (01) | DRG 309 ==
LOC: ER 15:14 → TELE 15:15 → TELE-CENTR 20:40
PROVIDERS: ADMIT Hospitalist; ATTEND Internal Medicine
DX: I48.19 Other persistent atrial fibrillation (principal); D68.69 Other thrombophilia; I24.9 Acute ischemic heart disease, unspecified; D68.4 Acquired coagulation factor deficiency; E66.9 Obesity, unspecified; E78.5 Hyperlipidemia, unspecified; Z79.01 Long term (current) use of anticoagulants; Z79.899 Other long term (current) drug therapy; Z80.9 Family history of malignant neoplasm, unspecified; Z83.3 Family history of diabetes mellitus; Z85.46 Personal history of malignant neoplasm of prostate; Z87.891 Personal history of nicotine dependence; Z90.49 Acquired absence of other specified parts of digestive tract; Z95.0 Presence of cardiac pacemaker; Z88.5 Allergy status to narcotic agent; Z88.8 Allergy status to other drugs, medicaments and biological substances; Z68.31 Body mass index [BMI] 31.0-31.9, adult
CPT/HCPCS: 36415; 71046; 80053; 83735; 84484; 85025; 93005; 96360; G0378

== ENCOUNTER → 2020-03-13 | Outpatient (CLI) | payer BC ==
[~2020-03-13] MED LIST changes: +FLEC100T21 PO; +METO25TA5 PO; -SOTA80TA PO
== END | disposition home or self-care (01) ==
LOC: LAB 12:43
DX: I48.0 Paroxysmal atrial fibrillation (principal); I49.5 Sick sinus syndrome; Z95.0 Presence of cardiac pacemaker
CPT/HCPCS: 36415; 82565; 84520

== ENCOUNTER → 2020-03-15 | Outpatient (CLI) | payer BC ==
[~2020-03-15] MED LIST changes: +IOHEXOL 350 MG/ML 100ML IJ ONE
== END | disposition home or self-care (01) ==
LOC: CT 06:10
DX: I48.0 Paroxysmal atrial fibrillation (principal); I49.5 Sick sinus syndrome; Z95.0 Presence of cardiac pacemaker
CPT/HCPCS: 71275; Q9967

== ENCOUNTER → 2020-04-11 | Outpatient (CLI) | payer BC ==
[~2020-04-11] MED LIST changes: -IOHEXOL 350 MG/ML 100ML IJ ONE
[2020-04-11 08:04] LABS: Albumin 4.2 g/dL (3.4-5.0); Calcium 8.8 mg/dL (8.5-10.1); Potassium 3.8 mmol/L (3.5-5.1)
[2020-04-11 08:07] LABS: BUN/Creatinine Ratio 10.2; Bilirubin, Total 1.3 mg/dL (0.2-1.0); Total Protein 7.1 g/dL (6.4-8.2)
== END | disposition home or self-care (01) ==
LOC: LAB 07:21
PROVIDERS: ATTEND Internal Medicine
DX: N40.0 Benign prostatic hyperplasia without lower urinary tract symptoms (principal); E78.5 Hyperlipidemia, unspecified; E11.9 Type 2 diabetes mellitus without complications
CPT/HCPCS: 36415; 80053; 80061; 83036; 84153

== ENCOUNTER → 2020-04-16 | Outpatient (CLI) | payer BC | END | disposition home or self-care (01) | LOC: LAB 07:39 | PROVIDERS: ATTEND Internal Medicine | DX: N40.0 Benign prostatic hyperplasia without lower urinary tract symptoms (principal); E78.5 Hyperlipidemia, unspecified | CPT/HCPCS: 82270 ==

== ENCOUNTER → 2021-02-11 | Outpatient (CLI) | payer BC ==
[2021-02-11 07:11] LABS: Basophils # (auto) 0 10 ^3/uL (0-0.2); Basophils % (auto) 0.4 % (0.0-2.0); Eosinophils # (auto) 0.1 10 ^3/uL (0-0.8); Eosinophils % (auto) 1.3 % (0.0-7.0); Hematocrit 44.5 % (41.0-53.0); Hemoglobin 15.7 g/dL (13.5-17.5); Lymphocytes # (auto) 2.1 10 ^3/uL (0.4-5.4); Lymphocytes % (auto) 32.2 % (10.0-50.0); Mean Corpuscular Hemoglobin 32.8 pg (28.0-32.0); Mean Corpuscular Hgb Conc. 35.4 g/dL (32.0-36.0); Mean Corpuscular Volume 92.6 fL (80.0-100.0); Monocytes # (auto) 0.5 10 ^3/uL (0-1.3); Monocytes % (auto) 8.1 % (0.0-12.0); Neutrophils # (auto) 3.9 10 ^3/uL (1.6-8.6); Nucleated Red Blood Cells % 0.1 %; Red Cell Distribution Width 12.8 % (11.8-14.3); White Blood Cell 6.7 10^3/uL (4.4-10.8)
[2021-02-11 07:59] LABS: Potassium 3.8 mmol/L (3.5-5.1)
[2021-02-11 08:07] LABS: Albumin 3.9 g/dL (3.4-5.0); BUN/Creatinine Ratio 13.5; Calcium 8.5 mg/dL (8.5-10.1); Total Protein 7.2 g/dL (6.4-8.2)
== END | disposition home or self-care (01) ==
LOC: LAB 06:37
PROVIDERS: ATTEND Internal Medicine
DX: I10 Essential (primary) hypertension (principal); N40.0 Benign prostatic hyperplasia without lower urinary tract symptoms; E78.5 Hyperlipidemia, unspecified
CPT/HCPCS: 36415; 80053; 80061; 82306; 84153; 84443; 85025

== ENCOUNTER → 2021-02-15 | Outpatient (CLI) | payer BC | END | disposition home or self-care (01) | LOC: LAB 07:52 | PROVIDERS: ATTEND Internal Medicine | DX: E78.5 Hyperlipidemia, unspecified (principal); I10 Essential (primary) hypertension; N40.0 Benign prostatic hyperplasia without lower urinary tract symptoms | CPT/HCPCS: 82270 ==

== ENCOUNTER → 2022-01-17 | Outpatient (CLI) | payer BC ==
[~2022-01-17] MED LIST changes: +FLEC100T PO; -FLEC100T21 PO
[2022-01-17 08:59] LABS: Basophils # (auto) 0 10 ^3/uL (0-0.2); Basophils % (auto) 0.5 % (0.0-2.0); Eosinophils # (auto) 0.1 10 ^3/uL (0-0.8); Eosinophils % (auto) 1.2 % (0.0-7.0); Hematocrit 43.9 % (41.0-53.0); Hemoglobin 15.3 g/dL (13.5-17.5); Lymphocytes # (auto) 2.3 10 ^3/uL (0.4-5.4); Lymphocytes % (auto) 29.9 % (10.0-50.0); Mean Corpuscular Hemoglobin 31.9 pg (28.0-32.0); Mean Corpuscular Hgb Conc. 34.8 g/dL (32.0-36.0); Mean Corpuscular Volume 91.7 fL (80.0-100.0); Monocytes # (auto) 0.4 10 ^3/uL (0-1.3); Monocytes % (auto) 5.8 % (0.0-12.0); Neutrophils # (auto) 4.7 10 ^3/uL (1.6-8.6); Neutrophils % (auto) 62.6 % (37.0-80.0); Nucleated Red Blood Cells % 0.1 %; Red Blood Cells 4.79 10^6/uL (4.5-5.90); Red Cell Distribution Width 12.7 % (11.8-14.3); White Blood Cell 7.6 10^3/uL (4.4-10.8)
[2022-01-17 09:32] LABS: Albumin 4.1 g/dL (3.4-5.0); BUN/Creatinine Ratio 12.7; Calcium 8.9 mg/dL (8.5-10.1); Potassium 4.1 mmol/L (3.5-5.1)
[2022-01-17 09:36] LABS: Bilirubin, Total 0.7 mg/dL (0.2-1.0); Total Protein 7.8 g/dL (6.4-8.2)
== END | disposition home or self-care (01) ==
LOC: LAB 08:33
PROVIDERS: ATTEND Internal Medicine
DX: I10 Essential (primary) hypertension (principal)
CPT/HCPCS: 36415; 80053; 80061; 84153; 84443; 85025

== ENCOUNTER → 2022-12-29 | Outpatient (CLI) | payer BC ==
[2022-12-29 07:29] LABS: Basophils # (auto) 0 10 ^3/uL (0-0.2); Basophils % (auto) 0.4 % (0.0-2.0); Eosinophils # (auto) 0.2 10 ^3/uL (0-0.8); Eosinophils % (auto) 2.1 % (0.0-7.0); Lymphocytes # (auto) 2.5 10 ^3/uL (0.4-5.4); Lymphocytes % (auto) 35.2 % (10.0-50.0); Mean Corpuscular Hgb Conc. 35.6 g/dL (32.0-36.0); Mean Corpuscular Volume 92.7 fL (80.0-100.0); Monocytes # (auto) 0.6 10 ^3/uL (0-1.3); Monocytes % (auto) 8.4 % (0.0-12.0); Neutrophils # (auto) 3.9 10 ^3/uL (1.6-8.6); Neutrophils % (auto) 53.9 % (37.0-80.0); Nucleated Red Blood Cells % 0.3 %; Red Blood Cells 4.85 10^6/uL (4.5-5.90); Red Cell Distribution Width 12.9 % (11.8-14.3); White Blood Cell 7.2 10^3/uL (4.4-10.8)
[2022-12-29 07:48] LABS: Albumin 4.3 g/dL (3.4-5.0); Calcium 8.5 mg/dL (8.5-10.1); Potassium 3.9 mmol/L (3.5-5.1)
[2022-12-29 07:53] LABS: BUN/Creatinine Ratio 13.5 (10.0-20.0); Total Protein 7.1 g/dL (6.4-8.2)
== END | disposition home or self-care (01) ==
LOC: LAB 06:40
PROVIDERS: ATTEND Internal Medicine
DX: I48.20 Chronic atrial fibrillation, unspecified (principal)
CPT/HCPCS: 36415; 80053; 80061; 83036; 84153; 84443; 85025

== ENCOUNTER → 2023-08-21 | Outpatient (CLI) | payer BC | END | disposition home or self-care (01) | LOC: XYW 07:15 | DX: I51.89 Other ill-defined heart diseases (principal); I48.0 Paroxysmal atrial fibrillation; I49.5 Sick sinus syndrome | CPT/HCPCS: 93306 ==

== ENCOUNTER → 2024-08-23 | Outpatient (CLI) | payer BC ==
[2024-08-23 06:56] LABS: Urine Bacteria None Seen /hpf (None Seen)
[2024-08-23 07:10] LABS: Basophils # (auto) 0 10 ^3/uL (0-0.2); Basophils % (auto) 0.5 % (0.0-2.0); Eosinophils # (auto) 0.2 10 ^3/uL (0-0.8); Eosinophils % (auto) 2.2 % (0.0-7.0); Hematocrit 46.7 % (41.0-53.0); Hemoglobin 16.1 g/dL (13.5-17.5); Lymphocytes # (auto) 2.4 10 ^3/uL (0.4-5.4); Lymphocytes % (auto) 34.1 % (10.0-50.0); Mean Corpuscular Hemoglobin 32.1 pg (28.0-32.0); Mean Corpuscular Hgb Conc. 34.4 g/dL (32.0-36.0); Mean Corpuscular Volume 93.5 fL (80.0-100.0); Monocytes # (auto) 0.5 10 ^3/uL (0-1.3); Monocytes % (auto) 7.4 % (0.0-12.0); Neutrophils % (auto) 55.8 % (37.0-80.0); Nucleated Red Blood Cells % 0.2 %; Platelet Count (auto) 240 10^3/uL (140-450); Red Cell Distribution Width 12.7 % (11.8-14.3); White Blood Cell 7.1 10^3/uL (4.4-10.8)
[2024-08-23 07:20] LABS: Urine Blood Negative /uL (Negative); Urine Clarity Clear (Clear); Urine Color Yellow (Yellow); Urine Mucus FEW (None Seen); Urine Protein, UAD TRACE (Negative); Urine Specific Gravity 1.028 (1.001-1.035); Urine Squamous Epithelial Cell None Seen /hpf (<5); Urine Urobilinogen Normal (Negative); Urine WBC < 1 /HPF (0-3); Urine pH 5.5 (5.0-9.0)
[2024-08-23 07:53] LABS: Albumin 4.6 g/dL (3.2-4.8); Alkaline Phosphatase 88 U/L (46-116); Anion Gap 6 (5-15); BUN/Creatinine Ratio 11.1 (10.0-20.0); Blood Urea Nitrogen 11 mg/dL (9-23); Calcium 9.5 mg/dL (8.7-10.4); Carbon Dioxide 28 mmol/L (20-31); Potassium 4.3 mmol/L (3.5-5.1); Sodium 142 mmol/L (136-145)
[2024-08-23 07:54] LABS: Bilirubin, Total 0.7 mg/dL (0.2-1.0); Total Protein 6.9 g/dL (5.7-8.2)
[2024-08-23 07:58] LABS: Alanine Aminotransferase < 9 U/L (7-40); Aspartate Aminotransferase 11 U/L (13-40); Chloride 108 mmol/L (98-107); Glucose 106 mg/dL (74-106)
[2024-08-23 15:43] LABS: Triglycerides 60 mg/dL (< 150)
[2024-08-23 15:44] LABS: Cholesterol 135 mg/dL (< 200); HDL Cholesterol 55 mg/dL (40-59); LDL Cholesterol 76 mg/dL (< 100)
[2024-08-23 16:28] LABS: Microalb/Creat Ratio, Urine < 3.0
[2024-08-23 16:29] LABS: Creatinine, Urine 268.55 mg/dL (30.0-125.0)
== END | disposition home or self-care (01) ==
LOC: LAB 06:31
PROVIDERS: ATTEND Internal Medicine
DX: Z00.01 Encounter for general adult medical examination with abnormal findings (principal); N18.2 Chronic kidney disease, stage 2 (mild); R17 Unspecified jaundice; R73.01 Impaired fasting glucose; E66.89 Other obesity not elsewhere classified
CPT/HCPCS: 36415; 80053; 80061; 81001; 82043; 82570; 83036; 84439; 84443; 85025

== ENCOUNTER 2025-02-20 06:03 | Outpatient (CLI) | payer BC ==
[2025-02-20 06:19] LABS: Potassium 4.3 mmol/L (3.5-5.1); Sodium 144 mmol/L (136-145)
[2025-02-20 06:20] LABS: Anion Gap 9 (5-15); Calcium 9.0 mg/dL (8.7-10.4); Carbon Dioxide 28 mmol/L (20-31)
[2025-02-20 06:22] LABS: Chloride 107 mmol/L (98-107)
[2025-02-20 06:31] LABS: BUN/Creatinine Ratio 14.0 (10.0-20.0); Blood Urea Nitrogen 14 mg/dL (9-23); Glucose 112 mg/dL (74-106)
== END 2025-02-20 17:00 | disposition home or self-care (01) ==
LOC: LAB 06:03
PROVIDERS: ATTEND Internal Medicine
DX: C61 Malignant neoplasm of prostate (principal); N18.2 Chronic kidney disease, stage 2 (mild)
CPT/HCPCS: 36415; 80048; 84153